=== PATIENT | female | born 1985 | race Caucasian/White ===

== ENCOUNTER → 2021-12-24 09:26 | Outpatient (CLI) | payer OTHER, SELFPAY ==
--- NOTE | ~2021-12-24 | XR_ITS ---
EXAMINATION: XR lumbar spine min 4V DATE: 12/24/2021 09:56 INDICATION: Low back pain TECHNIQUE: Anteroposterior, lateral, and bilateral oblique views of the lumbar spine, and cone-down l ateral view of the lumbosacral junction were obtained. COMPARISON: CT, 09/10/2014 FINDINGS: Bone alignment is normal. There is no fracture. The vertebral body heights are maintained. There is mild loss of intervertebral disc space height at L5-S1. Mild facet osteoarthritis is noted i n the lower lumbar spine. Small degenerative osteophytes project from the anterior endplates of multi ple vertebral bodies. Surgical clips in the right upper quadrant are likely from prior cholecystectom y. IMPRESSION: 1. Mild lumbar spondylosis without acute findings. Reviewed, dictated and finalized at location A.
== END ==
PROVIDERS: PCP Nurse Practitioner; Visit Provider Nurse Practitioner
DX: M47.896 Other spondylosis, lumbar region (principal)
CPT/HCPCS: 72110

== ENCOUNTER 2022-01-24 14:43 | Emergency (ER) | payer OTHER, SELFPAY ==
--- NOTE | ~2022-01-24 | XR_ITS ---
EXAM: XR foot RT min 3V DATE: 01/24/2022 15:04 HISTORY: NKI,PAINFUL FOREFOOT DORSAL LUMP . COMPARISON: None. FINDINGS: Normal mineralization. No fracture or dislocation. No lytic or blastic lesion. Achilles an d plantar enthesopathy. Scattered mild degenerative change. No erosion or periosteal change. Soft tis miesha swelling/nodularity over the dorsum of the foot. IMPRESSION: No acute osseous finding in the right foot. Soft tissue swelling/nodularity over the dors um of the foot. No radiopaque foreign body. Reviewed, dictated and finalized at location K. IMPRESSION: No acute osseous finding in the right foot. Soft tissue swelling/no dularity over the dorsum of the foot. No radiopaque foreign body.
--- NOTE | 2022-01-24 14:46 | ED.LOWEXIN ---
HPI - Extremity Injury (Lower) General Chief Complaint: Extremity Problem,Nontraumatic Stated Complaint: Top of right foot has a lump Time Seen by Provider: 01/24/22 14:47 Source: patient and RN notes reviewed History of Present Illness HPI Narrative: Patient is a 37-year-old female who presents the urgent care with complaints of a lump to the right foot. Patient states that she noticed it on Wednesday. States that she is on her feet all day at work but denies of any known injury or trauma. Patient has been using ice and Tylenol/ibuprofen for pain. No other acute complaints. No acute distress noted. Patient aware of the plan of care. Some parts of this dictation were generated by voice recognition software and may contain typographical and/or grammatical inaccuracies. Related Data Allergies Allergy/AdvReac Type Severity Reaction Status Date / Time No Known Allergies Allergy Unverified 01/24/22 14:55 Review of Systems Review of Systems: CONSTITUTIONAL: Denies fever, chills, or sweats. EYES: Denies visual changes, redness, or discharge. ENT: Denies rhinorrhea, congestion, sore throat, or otalgia. CARDIOVASCULAR: Denies chest pain, palpitations, or edema. RESPIRATORY: Denies cough or dyspnea. GASTROINTESTINAL: Denies abdominal pain, nausea, vomiting, or diarrhea. GENITOURINARY: Denies dysuria or hematuria. SKIN: Denies rash or itching. MUSCULOSKELETAL: Reports of right foot pain NEUROLOGIC: Denies headache, numbness, or weakness. All other systems reviewed are negative, except as documented in HPI. PMFSH Past Medical History Medical History Cholecystectomy planned 2014 Depression Family History Family History Father Asthma Depression Grandparent Diabetes mellitus Other Family history of malignant neoplasm of breast Family history of malignant neoplasm of ovary Social History Social History Smoking status: Never smoker Alcohol intake: current Comments At the time of my signature, I reviewed and agree with the nursing past medical, surgical, social, and family history. There is no relevant family history pertinent to the patient complaint. Exam Narrative: GENERAL: This is a well-nourished, well-developed patient, in no apparent distress. HEAD: normocephalic, atraumatic. EYES: PERRL. Sclera clear/white. Vision is grossly intact. EARS: External ears normal NOSE: External nose normal with no obvious nasal discharge, nares without redness, no rhinorrhea. THROAT: Mucous membranes moist NECK: Neck supple NEURO: awake, alert, and oriented to person, place and time. There were no obvious focal neurologic abnormalities. EXTREMITIES: Range of motion of right lower extremity within normal limits. approximate 2 cm nodule to the dorsal lateral aspect of the right foot with mild tenderness, consistent with ganglion cyst. Positive strong right pedal pulse with capillary refill less than 2 seconds. Course Course Level of Care: Express Care Visit Vital Signs Vital signs: Vital Signs Temperature 98.8 F 01/24/22 14:47 Pulse Rate 88 01/24/22 14:47 Respiratory Rate 16 01/24/22 14:47 Blood Pressure 130/74 01/24/22 14:47 Pulse Oximetry 100 01/24/22 14:47 Oxygen Delivery Room Air 01/24/22 14:47 Temperature 98.8 F 01/24/22 14:47 Pulse Rate 88 01/24/22 14:47 Respiratory Rate 16 01/24/22 14:47 Blood Pressure 130/74 01/24/22 14:47 Pulse Oximetry 100 01/24/22 14:47 Oxygen Delivery Room Air 01/24/22 14:47 Reviewed MDM - Extremity Injury (Lower) MDM Narrative Medical decision making narrative: Reviewed x-ray results with the patient. She is aware that there is no fracture deformity noted. There is mild soft tissue swelling likely due to the tender nodule. Area is most likely a ganglion cyst and will either
[2022-01-24 14:47] VITALS: BP 130/74; PULSE 88; RESP 16; TEMP 37.1; O2SAT 100
== END 2022-01-24 15:40 | disposition home or self-care (01) ==
PROVIDERS: Emergency Provider Nurse Practitioner Family; PCP Internal Medicine
DX: M67.471 Ganglion, right ankle and foot (principal); F32.A Depression, unspecified
CPT/HCPCS: 73630; 99213; G0463

== ENCOUNTER 2022-02-12 15:00 | Outpatient (RCR) | payer OTHER, SELFPAY ==
--- NOTE | 2022-01-09 09:01 | PTOPEVAL1 ---
Assessment and note entered by Madeleine Oconnell, PT, DPT Evaluation Information Assessment Status Evaluation Diagnosis low back and L leg pain Onset ~3-4 months Subjective Information Pt states she has had back pain for the last 6 years but worsening in the last 4 months. She states she initial tried a chiropractor which initially helped, but then started making non painful spots of her back hurt. Pt reports 0/10 pain at conclusion of treatment this date. Reported Pain Level Pain Score 4: Self Report Assessment PT Clinical Summary [place] presents to therapy today for her inital evaluation with a diagnosis of low back pain. Today she demonstrates limited motion of her piriformis muscle, tenderness in her piriformis, and a positive L sided slump test. She also demonstrates an increased lordotic curve in standing and decreased abdominal strength. Skilled physical therapy services are indicated to limit pain, to decreased radiating symptoms, to improve core strength, and to return to baseline function. Plan of Care Interventions Gait Training,Manual Therapy,Neuro Re-education, Patient/Caregiver Educati,Therapeutic Activities, Therapeutic Exercise PT Services Indicated Yes Treatment Frequency and 1x/wk for 4 wks Duration These treatments will address the objective and functional deficits as defined above. The patient will be advanced safely and appropriately in order for the patient to progress towards his/her prior level of function. Additional exercises will be introduced and as well as a comprehensive home exercise program upon discharge, if needed, ?to ensure carryover of functional gains achieved in the clinic. This treatment plan has been reviewed and agreement upon by the patient.
--- NOTE | 2022-02-05 16:26 | PTOPPROG ---
Assessment and note entered by Madeleine Oconnell, PT, DPT Evaluation Information Assessment Status Progress Diagnosis low back and L leg pain Onset ~3-4 months Subjective Information Pt states overall she is doing about the same. She states she has learned a lot and can sometimes help to minimize her pain, but overall is the same . She states she feels like she is getting muscles spams down the back of her L leg. She continues to report pain into her toes. Assessment PT Clinical Summary [place] presents to therapy today for her progress report following 4 visits of skilled therapy to treat her L sided sciatic pain. Today she continues to have significant tightness and pain in her L piriformis and glute med region. She ambulates with a L sided trunk lean and decreased heel strike to limit symptoms. Continuation of skilled physical therapy services focusing on pain management are indicated to be able to progress towards other therapy goals and to promote independence. Plan of Care Interventions Gait Training,Manual Therapy,Neuro Re-education, Patient/Caregiver Educati,Therapeutic Activities, Therapeutic Exercise PT Services Indicated Yes Treatment Frequency and 1x/wk for 4 wks Duration These treatments will address the objective and functional deficits as defined above. The patient will be advanced safely and appropriately in order for the patient to progress towards his/her prior level of function. Additional exercises will be introduced and as well as a comprehensive home exercise program upon discharge, if needed, ?to ensure carryover of functional gains achieved in the clinic. This treatment plan has been reviewed and agreement upon by the patient.
--- NOTE | 2022-02-20 15:33 | PCPTNOTE ---
Patient no showed to appointment this date after rescheduling yesterday.
--- NOTE | 2022-02-26 17:04 | PCPTNOTE ---
Patient no show and no called for appointment this date.
--- NOTE | 2022-03-05 15:54 | PTOPDC ---
Assessment and note entered by Madeleine Oconnell, PT, DPT Evaluation Information Assessment Status Discharge - Pt Not Present Diagnosis low back and L leg pain Onset ~3-4 months Subjective Information Pt did not show up for her scheduled re-evaluation this date. Called and spoke with patient, she states she forgot. She states her doctor is sending her to a neurologist and pain management. Assessment PT Clinical Summary [place] has completed 6 visits of therapy from 01/09 to 02/12/22. She will be discharged at this time d/t 3 consecutive no shows. As well as, she is following up with pain management. If she is to return to therapy at a later date she will need a new order.
== END 2022-03-06 14:27 | disposition home or self-care (01) ==
LOC: ANHGOSHPT 15:00
PROVIDERS: PCP Nurse Practitioner; Visit Provider Nurse Practitioner
DX: M54.40 Lumbago with sciatica, unspecified side (principal)
CPT/HCPCS: 97035; 97110; 97112; 97140; 97161; 99199

== ENCOUNTER 2022-02-18 14:55 | Outpatient (CLI) | payer OTHER, SELFPAY ==
--- NOTE | ~2022-02-18 | MR_ITS ---
EXAMINATION: MR lumbar spine wo con DATE: 02/18/2022 15:31 INDICATION: Lumbar back pain with radiculopathy TECHNIQUE: Magnetic resonance imaging (MRI) of the lumbar spine was performed without intravenous con trast. Sequences included sagittal T2-weighted FSE, sagittal T2-weighted FS FSE, sagittal T1-weighted FSE, and axial T2-weighted FSE. COMPARISON: None FINDINGS: Alignment is normal. Vertebral body heights are normal. Normal marrow signal. This desiccation and m ild to moderate disc height loss at L4-5 with large posterior disc extrusion which will be further de tailed below. The conus medullaris terminates at L1-L2. There is normal signal in the caudal spinal c ord. Paravertebral soft tissues are unremarkable. The following disc levels are specifically discusse d: L1-L2: The disc does not extend beyond the endplate margin. There is mild bilateral facet joint osteo arthritis. There is no neural foraminal stenosis. There is no central canal stenosis. L2-L3: Minimal bilateral foraminal zone disc protrusions. There is mild bilateral facet joint osteoar thritis. There is mild bilateral neural foraminal stenosis. There is no central canal stenosis. L3-L4: The disc does not extend beyond the endplate margin. There is moderate bilateral facet joint o steoarthritis. There is mild bilateral neural foraminal stenosis. There is no central canal stenosis. L4-L5: Annular fissure and large central disc extrusion which nearly fills the central canal resultin g in severe central canal stenosis and moderate right and severe left neural foraminal stenosis. Ther e is moderate left and mild to moderate right facet joint osteoarthritis. There is mild right and mil d to moderate left neural foraminal stenosis. L5-S1: The disc does not extend beyond the endplate margin. There is mild to moderate right and moder ate to severe left facet joint osteoarthritis. There is mild left neural foraminal stenosis. There is no central canal stenosis. IMPRESSION: 1. Mild to moderate lower lumbar spondylosis most notable for annular fissure and large disc extrusio n resulting in severe central canal stenosis at L4-L5. Reviewed, dictated and finalized at location A. IMPRESSION: 1. Mild to moderate lower lumbar spondylosis most notable for annular fissure a nd large disc extrusion resulting in severe central canal stenosis at L4-L5.
== END 2022-02-18 14:56 | disposition home or self-care (01) ==
LOC: ANHIMG 14:59
PROVIDERS: PCP Internal Medicine; Visit Provider Nurse Practitioner
DX: M47.896 Other spondylosis, lumbar region (principal)
CPT/HCPCS: 72148